=== PATIENT | female | born 1960 | race Caucasian/White ===

== ENCOUNTER 2019-05-31 15:24 | Emergency (ER) | payer BC, OTHER ==
[~2019-05-31] VITALS: Ht 162.6 cm; Wt 81.7 kg
[~2019-05-31 15:24] MED LIST: ALBU90OI6; Macrodantin50 MG; NEXIUM 24HR20 M2; PROZAC20 MG; Synthroid25 MCG; ZYRTEC10 MG
[2019-05-31 15:54] LABS: BASOPHILS ABSOLUTE AUTO 0.05 K/mm3 (0.00-0.23); BASOPHILS PERCENT AUTO 1 % (0-2); EOSINOPHILS ABSOLUTE AUTO 0.42 K/mm3 (0.00-0.68); EOSINOPHILS PERCENT AUTO 5 % (0-6); Hematocrit 44.7 % (33.0-51.0); Hemoglobin 14.8 g/dL (11.5-16.0); IMMATURE GRAN ABSOLUTE AUTO 0.03 K/mm3 (0.00-0.10); IMMATURE GRAN PERCENT AUTO 0 % (0-1); LYMPHOCYTES ABSOLUTE AUTO 2.51 K/mm3 (0.84-5.20); LYMPHOCYTES PERCENT AUTO 29 % (21-46); MONOCYTES PERCENT AUTO 15 % (4-13); Mean Corpuscular HGB 30.1 pg (26.0-34.0); Mean Corpuscular HGB Conc 33.1 g/dL (31.5-36.5); Mean Corpuscular Volume 91 fL (80-100); Mean Platelet Volume 10.4 fL (9.1-12.4); NEUTROPHILS ABSOLUTE AUTO 4.36 K/mm3 (1.96-9.15); NEUTROPHILS PERCENT AUTO 50 % (41-73); Platelet Count 293 K/mm3 (150-400); RDW Coefficient Variation 11.9 % (11.7-14.2); Red Blood Cell Count 4.92 M/mm3 (3.80-5.20); White Blood Cell Count 8.67 K/mm3 (4.00-11.30)
[2019-05-31 16:12] LABS: Alanine Aminotransfer (ALT/SGP 25 U/L (12-78); Alk Phos 82 U/L (50-136); Anion Gap 4 mmol/L (6-16); Aspartate Aminotrans (AST/SGOT 22 U/L (12-37); Bilirubin, Total 0.3 mg/dL (0.1-1.0); Blood Urea Nitrogen 17 mg/dL (8-24); Bun/Creatinine Ratio 24.3 (12.0-20.0); CO2, Blood 30 mmol/L (21-32); Calcium, Blood 9.2 mg/dL (8.5-10.1); Chloride, Blood 106 mmol/L (98-108); Globulin, Blood 4.1 g/dL (2.2-4.0); Glomerular Filtration Rate >60 (60-); Glucose, Blood 85 mg/dL (70-99); Potassium, Blood 4.2 mmol/L (3.5-5.5); Sodium, Blood 140 mmol/L (136-145); Total Protein, Blood 8.1 g/dL (6.4-8.2)
[2019-05-31] MEDS ORDERED: Ventolin/Prove6.7 GM INH (17:35)
[2019-05-31] MEDS ORDERED: ALBU90OI INH (17:36)
== END 2019-05-31 17:32 | disposition home or self-care (01) ==
LOC: ER 15:24
PROVIDERS: Nurse Practitioner
DX: R05 Cough (principal); E03.9 Hypothyroidism, unspecified; Z79.899 Other long term (current) drug therapy; Z79.51 Long term (current) use of inhaled steroids
CPT/HCPCS: 36415; 71045; 80053; 85025; 99283-25

== ENCOUNTER 2019-06-07 13:37 | Emergency (ER) | payer BC, OTHER ==
[~2019-06-07] VITALS: Ht 162.6 cm; Wt 81.7 kg
[~2019-06-07 13:37] MED LIST changes: +ALBU90OI INH; +Ventolin/Prove6.7 GM INH
[2019-06-07] MEDS ORDERED: Prednisone20 MG PO (15:36)
== END 2019-06-07 15:53 | disposition home or self-care (01) ==
LOC: ER 13:37
DX: J40 Bronchitis, not specified as acute or chronic (principal); J98.01 Acute bronchospasm; E03.9 Hypothyroidism, unspecified; Z79.899 Other long term (current) drug therapy
CPT/HCPCS: 71046; 99283-25; J7512

== ENCOUNTER 2021-05-04 09:32 | Day surgery (SDC) | payer BC ==
[~2021-05-04] VITALS: Ht 162.6 cm; Wt 80.7 kg
[~2021-05-04 09:32] MED LIST changes: +Prednisone20 MG PO
--- NOTE | 2021-05-04 13:48 | NUR ---
05/04/21 1348 NICOLE BROWNLEE 1108 PT STARTED RETCHING. PT WAS GIVEN 4MG ZOFRAN PER DR ORDER. ORAL SUCTIONING DONE - CLEAR SMALL AMOUNT OF SECRETIONS. O2 SATS DOWN TO 93% DURING RETCHING. JAW THRUST PERFORMED.
== END 2021-05-04 12:05 | disposition home or self-care (01) ==
LOC: ORSCSDS 09:32
PROVIDERS: Internal Medicine Gastroenterology
PROC: 0DBH8ZX Excision of Cecum, Via Natural or Artificial Opening Endoscopic, Diagnostic (ICD-10-PCS; principal; 2021-05-04 11:00)
DX: Z12.11 Encounter for screening for malignant neoplasm of colon (principal); Z86.010 Personal history of colon polyps; D12.0 Benign neoplasm of cecum; K57.30 Diverticulosis of large intestine without perforation or abscess without bleeding; K64.8 Other hemorrhoids; Z85.43 Personal history of malignant neoplasm of ovary
CPT/HCPCS: 88305; J2405; J2704; J7120

== ENCOUNTER 2021-07-22 14:15 | Emergency (ER) | payer BC ==
[~2021-07-22] VITALS: Ht 160 cm; Wt 83.9 kg
[2021-07-22] MEDS ORDERED: Norco 5-325 Ta1 EACH PO (16:37)
== END 2021-07-22 17:02 | disposition home or self-care (01) ==
LOC: ER 14:15
DX: S61.421A Laceration with foreign body of right hand, initial encounter (principal); S61.011A Laceration without foreign body of right thumb without damage to nail, initial encounter; S61.412A Laceration without foreign body of left hand, initial encounter; W25.XXXA Contact with sharp glass, initial encounter; W45.8XXA Other foreign body or object entering through skin, initial encounter; W10.9XXA Fall (on) (from) unspecified stairs and steps, initial encounter; E03.9 Hypothyroidism, unspecified; Z79.899 Other long term (current) drug therapy; Z23 Encounter for immunization
CPT/HCPCS: 73130; 90714; A9270